=== PATIENT | male | born 1975 | race Hispanic/Latino ===

== ENCOUNTER 2018-01-06 10:30 | Emergency (ER) | payer BC, OTHER ==
[2018-01-06] MEDS ORDERED: Ibuprofen 800 MG TAB ONE (11:06)
== END 2018-01-06 11:09 | disposition home or self-care (01) ==
LOC: NAV ERS 10:30
DX: S39.012A Strain of muscle, fascia and tendon of lower back, initial encounter (principal); I10 Essential (primary) hypertension; K51.90 Ulcerative colitis, unspecified, without complications; F17.210 Nicotine dependence, cigarettes, uncomplicated; Z79.899 Other long term (current) drug therapy; X50.1XXA Overexertion from prolonged static or awkward postures, initial encounter; Y99.0 Civilian activity done for income or pay
CPT/HCPCS: 99001; 99406

== ENCOUNTER 2018-06-05 14:04 | Emergency (ER) | payer BC ==
[2018-06-05] MEDS ORDERED: Bacitracin Zinc 1 Packet ONE (14:40)
== END 2018-06-05 14:43 | disposition home or self-care (01) ==
LOC: NAV ERS 14:04
DX: S61.432A Puncture wound without foreign body of left hand, initial encounter (principal); K58.9 Irritable bowel syndrome, unspecified; F17.210 Nicotine dependence, cigarettes, uncomplicated; Z79.899 Other long term (current) drug therapy; Z71.6 Tobacco abuse counseling; W22.8XXA Striking against or struck by other objects, initial encounter
CPT/HCPCS: 99406